=== PATIENT | male | born 1990 | race African-American/Black ===

== ENCOUNTER 2016-02-17 19:22 | Emergency (ER) | payer OTHER ==
[2016-02-17] MEDS ORDERED: AMOXicillin 250 MG CAP ONE (19:35)
[2016-02-17] MEDS ORDERED: Ketorolac Tromethamine 60 MG/2 ML VIAL ONE (19:35)
[2016-02-17] MEDS ORDERED: HYDROcodone/Acetaminophen 5/325 mg Tablet ONE (19:35)
--- NOTE | 2016-02-17 20:14 | ERRECORD ---
[facility] EMERGENCY RECORD HPI TOOTHACHE (19:38 ALIM) CHIEF COMPLAINT: Patient presents for evaluation of toothache. HISTORIAN: History provided by patient, 26 y/o male with no pmh presenting with right upper premolar pain worsening for one week. Tooth is fracture. No facial swelling. No fever. No other complaints. LOCATION: Symptoms are localized, most severe to Right upper premolar. QUALITY: Pain is dull in nature, described as aching. SEVERITY: Maximum severity of symptoms severe, Currently symptoms are severe. TIME COURSE: Gradual onset of symptoms, 1, weeks ago, Symptoms are worsening. ASSOCIATED WITH: No associated symptoms, No associated facial pain. EXACERBATED BY: Patient's condition exacerbated by chewing, Patient's condition exacerbated by cold fluids, Patient's condition exacerbated by hot fluids. RELIEVED BY: Patient's condition relieved by nothing. ROS (19:38 ALIM) CONSTITUTIONAL: Negative constitutional review of systems, Historian denies chills, denies fever. EYES: Negative eye review of systems, Historian denies eye pain, denies eye redness. ENT: Historian denies rhinorrhea, denies sore throat. Right upper premolar tooth pain. CARDIOVASCULAR: Negative cardiovascular review of systems, Historian denies chest pain, no radiation, Historian denies syncope. RESPIRATORY: Negative respiratory review of systems, Historian denies cough, denies shortness of breath. GI: Negative gastrointestinal review of systems, Historian denies abdominal pain, denies constipation, denies diarrhea, denies nausea, denies vomiting. MUSCULOSKELETAL: Negative musculoskeletal review of systems, Historian denies back pain, denies injury, denies neck pain. SKIN: Negative skin review of systems, Historian denies rash, denies skin changes. NEUROLOGIC: Negative neurologic review of systems, Historian denies dizziness, denies focal weakness, denies headache. PSYCHIATRIC: Negative psychiatric review of systems, Historian denies alcohol abuse, denies anxiety, denies depression. NOTES: All systems reviewed, negative except as described above. PAST MEDICAL HISTORY MEDICAL HISTORY: Notes: HOSPITALIZED FOR 1 WEEK IN DEC 2011. PT STATES HAD ENLARGED HEART VALVE. NO PROLEMS SINCE, Flu vaccine not up to date, Tetanus not up to date. (19:34 [facility]) MALE SURGICAL HISTORY: Patient has no surgical history. (19:34 [facility]) &a-1R&a+25V*p+0X*[id number]*c202B*c15G*c2P*p-0X&a-25V&a+1R Name: Richard Rivera : 1990 M26 MedRec: [id number] AcctNum: [id number] Prepared: WedFeb 17, 2016 20:25 by Interface Page 1 of 4 pMD [facility] EMERGENCY RECORD PSYCHIATRIC HISTORY: No previous psychiatric history. (19:34 [facility]) SOCIAL HISTORY: Patient drinks socially, every week, Patient denies drug use, Patient currently uses tobacco, smokes cigarettes, Occasional or some day smoker, Lives at home, with family. (19:34 [facility]) NOTES: Nursing records reviewed, Agree with nursing records, Medication list reviewed, I have reviewed and agree with nursing PMH, PSH, social history, and FH. (19:38 [facility]) KNOWN ALLERGIES No Known Drug Allergies CURRENT MEDICATIONS (19:32 [facility]K) None VITAL SIGNS VITAL SIGNS: BP: 157/93, Pulse: 89, Resp: 16, Temp: 98.4 (Oral), Pain: 10 (Intermittent), O2 sat: 96 on Room Air, Time: 02/17/2016 19:29. (19:29 [facility]) Pain: 4, Time: 02/17/2016 19:57. (19:57 [facility]) PHYSICAL EXAM (19:38 ALIM) CONSTITUTIONAL: Vital signs reviewed, Patient afebrile, Pulse normal, Blood pressure, hypertensive, Respiratory rate normal, Patient appears non toxic, Patient appears in pain, in moderate pain distress, Patient alert and oriented to person, place and time. HEAD: Head exam normal, Head exam included findings of head atraumatic, normocephalic. EYES: Eye exam normal, Eye exam included findings of eyelids normal to inspection, Pupils equally round and reactive to light, Extraocular muscles intact. ENT: Ear exam normal, Nose exam normal, Pharynx exam normal, Teeth with, dental caries, fractures, R upper premolar fractured. NECK: Neck exam normal, Neck exam included findings of normal range of motion, Trachea midline. RESPIRATORY CHEST: Respiratory and chest exam normal, Respiratory exam included findings of no respiratory distress, Breath sounds clear, No wheezing. CARDIOVASCULAR: Cardiovascular assessment normal, Cardiovascular exam included findings of heart rate regular rate and rhythm, Heart sounds normal. BACK: Back exam normal, Back exam included findings of normal inspection, range of motion normal. UPPER EXTREMITY: Upper extremity exam normal, Upper extremity exam included findings of inspection normal, Range of motion normal. LOWER EXTREMITY: Lower extremity exam normal, Lower extremity exam included findings of inspection normal, Range of motion normal. &a-1R&a+25V*p+0X*[id number]*c202B*c15G*c2P*p-0X&a-25V&a+1R Name: Richard Rivera : 1990 M26 MedRec: [id number] AcctNum: [id number] Prepared: WedFeb 17, 2016 20:25 by Interface Page 2 of 4 pMD [facility] EMERGENCY RECORD NEURO: Neuro exam normal, Norton coma scale 15, Neuro exam findings include patient oriented to person, place and time, Speech normal, Gait normal. SKIN: Skin exam normal, Skin exam included findings of skin warm, dry, and normal in color. PSYCHIATRIC: Psychiatric exam normal, Psychiatric exam included findings of patient oriented to person place and time, Normal affect, Judgment normal. MEDICATION ADMINISTRATION SUMMARY Drug Name: Toradol intramuscular, Dose Ordered: 60 mg, Route: Intramuscular, Status: Given, Time: 19:40 02/17/2016, Drug Name: amoxicillin, Dose Ordered: 500 mg, Route: Oral, Status: Given, Time: 19:39 02/17/2016, Drug Name: [place], Dose Ordered: 1 tab(s), Route: Oral, Status: Given, Time: 19:39 02/17/2016, Detailed record available in Medication Service section. PROBLEM LIST No recorded problems DIAGNOSIS (19:34 ALIM) FINAL: PRIMARY: Toothache, ADDITIONAL: Dental infection, Right upper premolar cracked tooth. PRESCRIPTION acetaminophen-codeine: TABLET : 300 mg-30 mg : ORAL : Quantity: 1 Unit: tab(s) Route: ORAL Schedule: every 8 hours PRN Dispense: 10 Unit: tab(s) May substitute. Refills: No Refills . (19:35 [facility]) NOTES: No Refills. (19:35 ALIM) amoxicillin: CAPSULE : 500 mg : ORAL : Quantity: 1 Unit: tab(s) Route: ORAL Schedule: 2 times a day Dispense: 20 Unit: tab(s) May substitute. Refills: No Refills . (19:35 ALIM) NOTES: ^s=No Refills No Refills. (19:35 ALIM) Naprosyn: TABLET : 250 mg : ORAL : Quantity: 500 Unit: mg Route: ORAL Schedule: every 12 hours Dispense: 20 May substitute. Refills: No Refills POTENTIAL CONTRAINDICATED INTERACTION: Toradol intramuscular (ketorolac tromethamine) Override Rationale: Patient no longer on medication. (19:35 [facility]) NOTES: As needed for pain No Refills. (19:35 ALIM) Peridex: MOUTHWASH : 0.12 % : MUCOUS MEMBRANE : Quantity: 10 Unit: mL Route: MUCOUS MEMBRANE Schedule: 2 times a day Dispense: 120 Unit: mL May substitute. Refills: No Refills . (19:37 [facility]) &a-1R&a+25V*p+0X*o2412S*c202B*c15G*c2P*p-0X&a-25V&a+1R Name: Richard Rivera : 1990 [facility] [place] MedRec: [id number] AcctNum: [id number] Prepared: WedFeb 17, 2016 20:25 by Interface Page 3 of 4 pMD [facility] EMERGENCY RECORD NOTES: swish and spit. do not swallow No Refills. (19:37 ALIM) DISPOSITION PATIENT: Disposition Type: Discharge, Disposition: *Discharge Home. (19:34 [facility]I) Patient left the department. (19:58 [facility]) Diana: MERCEDES=MD Neal, Ramy [facility]=DANNY Tesfaye, Mary Anne &a-1R&a+25V*p+0X*[id number]*c202B*c15G*c2P*p-0X&a-25V&a+1R Name: Richard Rivera : 1990 [facility] [place] MedRec: [id number] AcctNum: [id number] Prepared: Caroline Feb 17, 2016 20:25 by Interface Page 4 of 4 pMD MTDD
--- NOTE | 2016-02-17 20:17 | PICIS ---
[facility] EMERGENCY RECORD TRIAGE (19:32 [facility]) TRIAGE NOTES: RIGHT UPPER PREMOLAR CRACKED/PAIN X1 WEEK. NO OTHER COMPLAINTS. (19:32 [facility]) PATIENT: NAME: Richard Rivera, AGE: 26, GENDER: male, : Wed1990, TIME OF GREET: WedFeb 17, 2016 19:23, PREFERRED LANGUAGE: Bruneian, ETHNICITY: Not or , ECODE BILLING MAP: [facility], Zip Code: [address], KG WEIGHT: 113.4 (est.), PHONE: , , , PERSON ID: [id number], PCP: NONE. (19:32 [facility]) COMPLAINT: TOOTH ACHE,1 WEEK. (19:32 [facility]) ADMISSION: URGENCY: 5 Fast Track, ADMISSION SOURCE: Home, TRANSPORT: CAR, BED: ER -02. (19:32 [facility]) ASSESSMENT: Symptoms began 1 WEEK. (19:34 [facility]) PAIN: Patient complains of pain described as, throbbing, on a scale 0-10 patient rates pain as 10, Location RIGHT UPPER PREMOLAR, Pain is intermittent. (19:34 [facility]) IMMUNIZATIONS: Flu vaccine not up to date, Tetanus not up to date. (19:34 [facility]) SIRS SCORING: Heart Rate 55-109 (0), Temp range 96.8-101.1 (0), respiratory rate 12-24 (0), Latest WBC 3-14.9 (0), Mental Status altered: no (0). (19:34 [facility]) TRIAGE SCREENING: Patient denies suicidal ideation, Patient denies presence of domestic violence. (19:34 [facility]) TREATMENTS IN PROGRESS: Treatments given Prehospital: ORAJEL. (19:34 [facility]) PROVIDERS: TRIAGE NURSE: Mary Anne Tesfaye RN. (19:32 [facility]) VITAL SIGNS: BP 157/93, Pulse 89, Resp 16, Temp 98.4, (Oral), Pain 10, (Intermittent), O2 Sat 96, on Room Air, Time 02/17/2016 19:29. (19:29 [facility]) KNOWN ALLERGIES No Known Drug Allergies CURRENT MEDICATIONS (19:32 [facility]) None VITAL SIGNS VITAL SIGNS: BP: 157/93, Pulse: 89, Resp: 16, Temp: 98.4 (Oral), Pain: 10 (Intermittent), O2 sat: 96 on Room Air, Time: 02/17/2016 19:29. (19:29 [facility]) Pain: 4, Time: 02/17/2016 19:57. (19:57 [facility]) NURSING ASSESSMENT: DENTAL (19:35 [facility]) CONSTITUTIONAL: Complex assessment performed, Patient arrives ambulatory, Gait steady, History obtained from patient, Patient appears, in distress due to pain, Patient cooperative, Patient alert, Oriented to person, place and time, Skin warm, Skin dry, Skin normal in color, Mucous membranes pink, Mucous membranes &a-1R&a+25V*p+0X*a0766W*c202B*c15G*c2P*p-0X&a-25V&a+1R Name: Richard Rivera : 1990 M26 MedRec: [id number] AcctNum: [id number] Prepared: WedFeb 17, 2016 20:32 by Interface Page 1 of 7 pMD [facility] EMERGENCY RECORD moist, Patient complains of TOOTHACHE. PAIN: throbbing pain, RIGHT UPPER PREMOLAR, Onset of pain 1 WEEK, intermittent, on a scale 0-10 patient rates pain as 10. DENTAL: Dental assessment findings include mouth normal, Teeth abnormal:, gums swollen, gums tender, gums red, BROKEN RIGHT PREMOLAR. SAFETY: Cart/Stretcher in lowest position, Family at bedside, Call light within reach, Hospital ID band on. NURSING PROCEDURE: DISCHARGE NOTE (19:58 [facility]) DISCHARGE: Patient discharged to home, ambulating without assistance, family driving, accompanied by //partner, Summary of Care printed/ provided, Discharge instructions given to patient, Simple or moderate discharge teaching performed, by DANNY [place], discharge instructions and prescriptions reviewed with patient using teachback method. instructed pt not to stop taking antibiotic until prescriptionis complete, even if symptoms have resolved. take tylenol or motrin or naproxen for pain. take tylenol #3 for severe pain. avoid hot and cold liquids to help with pain. apply ice packs to the painful area to help decrease pain and swelling. follow up with dentist this week., Prescriptions given and instructions on side effects given, Name of prescription(s) given: TYLENOL #3, AMOXICILLIN, NAPROSYN, PERIDEX, Above person(s) verbalized understanding of discharge instructions and follow-up care, Patient instructed not to drive home. BELONGINGS: Belongings and valuables with patient upon arrival to the Emergency Department include:, Belongings and valuables with patient at time of discharge include:, Belongings remain with patient, Valuables remain with patient. MEDICATION ADMINISTRATION SUMMARY Drug Name: Toradol intramuscular, Dose Ordered: 60 mg, Route: Intramuscular, Status: Given, Time: 19:40 02/17/2016, Drug Name: amoxicillin, Dose Ordered: 500 mg, Route: Oral, Status: Given, Time: 19:39 02/17/2016, Drug Name: [place], Dose Ordered: 1 tab(s), Route: Oral, Status: Given, Time: 19:39 02/17/2016, Detailed record available in Medication Service section. MEDICATION SERVICE amoxicillin: Order: amoxicillin (amoxicillin trihydrate) - Dose: 500 mg : Oral Schedule: Now Ordered by: Ramy De Jesus MD Entered by: Ramy De Jesus MD WedFeb 17, 2016 19:33 , Acknowledged by: Mary Anne Tesfaye RN WedFeb 17, 2016 19:34 Documented as given by: Ela Delarosa RN WedFeb 17, 2016 19:39 Patient, Medication, Dose, Route and Time verified prior to &a-1R&a+25V*p+0X*z3620M*c202B*c15G*c2P*p-0X&a-25V&a+1R Name: Richard Rivera : 1990 M26 MedRec: [id number] AcctNum: [id number] Prepared: WedFeb 17, 2016 20:32 by Interface Page 2 of 7 pMD [facility] EMERGENCY RECORD administration. Amount given: 500 mg, Site: Medication administered P.O., Correct patient, time, route, dose and medication confirmed prior to administration, Patient advised of actions and side-effects prior to administration, Allergies confirmed and medications reviewed prior to administration, Patient in position of comfort, Side rails up, Cart in lowest position, Family at bedside. [place]: Order: [place] (hydrocodone bitartrate/acetaminophen) - Dose: 1 tab(s) : Oral Schedule: Now Ordered by: Ramy De Jesus MD Entered by: Ramy De Jesus MD WedFeb 17, 2016 19:34 , Acknowledged by: Mary Anne Tesfaye RN WedFeb 17, 2016 19:34 Documented as given by: Ela Delarosa RN WedFeb 17, 2016 19:39 Patient, Medication, Dose, Route and Time verified prior to administration. Amount given: 1 tab, Site: Medication administered P.O., Correct patient, time, route, dose and medication confirmed prior to administration, Patient advised of actions and side-effects prior to administration, Allergies confirmed and medications reviewed prior to administration, Patient in position of comfort, Side rails up, Cart in lowest position, Family at bedside, (1)5-325 mg tab. Toradol intramuscular: Order: Toradol intramuscular (ketorolac tromethamine) - Dose: 60 mg : Intramuscular Schedule: Now Ordered by: Ramy De Jesus MD Entered by: Ramy De eJsus MD WedFeb 17, 2016 19:33 , Acknowledged by: Mary Anne Tesfaye RN WedFeb 17, 2016 19:34 Documented as given by: Mary Anne Tesfaye RN WedFeb 17, 2016 19:40 Patient, Medication, Dose, Route and Time verified prior to administration. IM medication, Amount given: 60mg, Medication administered to right buttock, Patient appears Awake and alert- acceptable, Correct patient, time, route, dose and medication confirmed prior to administration, Patient advised of actions and side-effects prior to administration, Allergies confirmed and medications reviewed prior to administration. : Follow Up : No signs or symptoms of allergic reaction noted, Decreased pain, Site inspection shows, No swelling at administration site, No drainage at administration site, No bleeding at site, No bruising noted at site, Dressing applied. (19:55 [facility]) HPI TOOTHACHE (19:38 [facility]) CHIEF COMPLAINT: Patient presents for evaluation of toothache. HISTORIAN: History provided by patient, 26 y/o male with no pmh presenting with right upper premolar pain worsening for one week. Tooth is fracture. No facial swelling. No fever. No other complaints. LOCATION: Symptoms are localized, most severe to Right upper premolar. QUALITY: Pain is dull in nature, described &a-1R&a+25V*p+0X*v1410N*c202B*c15G*c2P*p-0X&a-25V&a+1R Name: Richard Rivera : 1990 M26 MedRec: [id number] AcctNum: [id number] Prepared: WedFeb 17, 2016 20:32 by Interface Page 3 of 7 pMD [facility] EMERGENCY RECORD as aching. SEVERITY: Maximum severity of symptoms severe, Currently symptoms are severe. TIME COURSE: Gradual onset of symptoms, 1, weeks ago, Symptoms are worsening. ASSOCIATED WITH: No associated symptoms, No associated facial pain. EXACERBATED BY: Patient's condition exacerbated by chewing, Patient's condition exacerbated by cold fluids, Patient's condition exacerbated by hot fluids. RELIEVED BY: Patient's condition relieved by nothing. ROS (19:38 [facility]) CONSTITUTIONAL: Negative constitutional review of systems, Historian denies chills, denies fever. EYES: Negative eye review of systems, Historian denies eye pain, denies eye redness. ENT: Historian denies rhinorrhea, denies sore throat. Right upper premolar tooth pain. CARDIOVASCULAR: Negative cardiovascular review of systems, Historian denies chest pain, no radiation, Historian denies syncope. RESPIRATORY: Negative respiratory review of systems, Historian denies cough, denies shortness of breath. GI: Negative gastrointestinal review of systems, Historian denies abdominal pain, denies constipation, denies diarrhea, denies nausea, denies vomiting. MUSCULOSKELETAL: Negative musculoskeletal review of systems, Historian denies back pain, denies injury, denies neck pain. SKIN: Negative skin review of systems, Historian denies rash, denies skin changes. NEUROLOGIC: Negative neurologic review of systems, Historian denies dizziness, denies focal weakness, denies headache. PSYCHIATRIC: Negative psychiatric review of systems, Historian denies alcohol abuse, denies anxiety, denies depression. NOTES: All systems reviewed, negative except as described above. PAST MEDICAL HISTORY MEDICAL HISTORY: Notes: HOSPITALIZED FOR 1 WEEK IN DEC 2011. PT STATES HAD ENLARGED HEART VALVE. NO PROLEMS SINCE, Flu vaccine not up to date, Tetanus not up to date. (19:34 [facility]) MALE SURGICAL HISTORY: Patient has no surgical history. (19:34 [facility]) PSYCHIATRIC HISTORY: No previous psychiatric history. (19:34 [facility]) SOCIAL HISTORY: Patient drinks socially, every week, Patient denies drug use, Patient currently uses tobacco, smokes cigarettes, Occasional or some day smoker, Lives at home, with family. (19:34 [facility]) NOTES: Nursing records reviewed, Agree with nursing records, Medication list reviewed, I have reviewed and agree with nursing PMH, &a-1R&a+25V*p+0X*j9376N*c202B*c15G*c2P*p-0X&a-25V&a+1R Name: Richard Rivera : 1990 M26 MedRec: [id number] AcctNum: [id number] Prepared: WedFeb 17, 2016 20:32 by Interface Page 4 of 7 pMD [facility] EMERGENCY RECORD PSH, social history, and FH. (19:38 [facility]) PHYSICAL EXAM (19:38 [facility]) CONSTITUTIONAL: Vital signs reviewed, Patient afebrile, Pulse normal, Blood pressure, hypertensive, Respiratory rate normal, Patient appears non toxic, Patient appears in pain, in moderate pain distress, Patient alert and oriented to person, place and time. HEAD: Head exam normal, Head exam included findings of head atraumatic, normocephalic. EYES: Eye exam normal, Eye exam included findings of eyelids normal to inspection, Pupils equally round and reactive to light, Extraocular muscles intact. ENT: Ear exam normal, Nose exam normal, Pharynx exam normal, Teeth with, dental caries, fractures, R upper premolar fractured. NECK: Neck exam normal, Neck exam included findings of normal range of motion, Trachea midline. RESPIRATORY CHEST: Respiratory and chest exam normal, Respiratory exam included findings of no respiratory distress, Breath sounds clear, No wheezing. CARDIOVASCULAR: Cardiovascular assessment normal, Cardiovascular exam included findings of heart rate regular rate and rhythm, Heart sounds normal. BACK: Back exam normal, Back exam included findings of normal inspection, range of motion normal. UPPER EXTREMITY: Upper extremity exam normal, Upper extremity exam included findings of inspection normal, Range of motion normal. LOWER EXTREMITY: Lower extremity exam normal, Lower extremity exam included findings of inspection normal, Range of motion normal. NEURO: Neuro exam normal, [place] coma scale 15, Neuro exam findings include patient oriented to person, place and time, Speech normal, Gait normal. SKIN: Skin exam normal, Skin exam included findings of skin warm, dry, and normal in color. PSYCHIATRIC: Psychiatric exam normal, Psychiatric exam included findings of patient oriented to person place and time, Normal affect, Judgment normal. EVENTS TRANSFER: Triage to Emergency Emergency Room -02. (WedFeb 17, 2016 19:32 [facility]) Removed from Emergency Emergency Room -02. (19:58 [facility]) ATTENDING (19:38 [facility]) ATTENDING: The documented history was done by me personally, The documented physical exam was done by me personally, The documented procedures were done by me personally, I have personally seen and examined this patient. I have fully participated in the care of this patient. I have reviewed all pertinent clinical information, &a-1R&a+25V*p+0X*o4938H*c202B*c15G*c2P*p-0X&a-25V&a+1R Name: Richard Rivera : 1990 M26 MedRec: [id number] AcctNum: [id number] Prepared: WedFeb 17, 2016 20:32 by Interface Page 5 of 7 pMD [facility] EMERGENCY RECORD including history, physical exam and plan. PROBLEM LIST No recorded problems DIAGNOSIS (19:34 [facility]) FINAL: PRIMARY: Toothache, ADDITIONAL: Dental infection, Right upper premolar cracked tooth. DISPOSITION PATIENT: Disposition Type: Discharge, Disposition: *Discharge Home. (19:34 [facility]) Patient left the department. (19:58 [facility]) INSTRUCTION (19:37 [facility]) DISCHARGE: TOOTH FRACTURED, TOOTH PAIN. FOLLOWUP: Anderson EDWARDS D.D.S, KENNEDI, Dentistry, [address] [facility] [address], [facility] [address], [id number], [facility], [facility], [address] [facility], [facility] [address], , Zari COLLADOS., SUJATHA, Dentistry, [address] [facility] [address], [phone], Melisa Morales, Dentistry, [address] [facility] [address] [facility] [address], [place] [address], [facility], , Zari THAKURS., JENNIFFER COTTRELL, Dentistry, [address], [place] [address], [id number], XENIA REEVESNA, Dentistry, [address] [facility] [place] [address], [id number], KEESHA SanchezS, Nieku, Dentistry, [address] [facility], [place] [id number], [facility], , ELIZABETH DDS, CHARITY, Dentistry, [address] [facility], [place] [address], [id number], Nicolas FLOWERS.S., LUIS EDUARDO, Dentistry, [address], [place] [address], [id number], [facility], Dental, Dentistry, [address] [facility], [place] [address], , Nicolas JONES.S., NIKKI, Dentistry, [address] [facility], [place] [address], [phone], KEESHA PeraltaS, Acosta, Dentistry, [address] [facility]. [address], [place] [address], , Akhil ATWOODD.S., LICO, Dentistry, [address], [place] [address], [phone], Light, DDS, Kerry, Dentistry, [address] [place] [address], [facility], , Follow up with Primary Care Physician in 1-2 days. SPECIAL: Follow-up with your primary care physician in 2-3 days for reevaluation. Please review the instructions and educational material provided for you. Return to the Emergency Center if you have worsening symptoms not controlled by medication, or if you have chest pain, shortness of breath, nausea and vomiting that cannot be controlled, or any other medical concerns. PRESCRIPTION acetaminophen-codeine: TABLET : 300 mg-30 mg : ORAL : Quantity: 1 Unit: tab(s) Route: ORAL Schedule: every 8 hours PRN Dispense: 10 Unit: tab(s) May substitute. Refills: No Refills . (19:35 [facility]) NOTES: No Refills. (19:35 [facility]) amoxicillin: CAPSULE : 500 mg : ORAL : Quantity: 1 Unit: &a-1R&a+25V*p+0X*l5074Y*c202B*c15G*c2P*p-0X&a-25V&a+1R Name: Richard Rivera : 1990 M26 MedRec: [id number] AcctNum: [id number] Prepared: WedFeb 17, 2016 20:32 by Interface Page 6 of 7 pMD [facility] EMERGENCY RECORD tab(s) Route: ORAL Schedule: 2 times a day Dispense: 20 Unit: tab(s) May substitute. Refills: No Refills . (19:35 [facility]) NOTES: ^s=No Refills No Refills. (19:35 [facility]) Naprosyn: TABLET : 250 mg : ORAL : Quantity: 500 Unit: mg Route: ORAL Schedule: every 12 hours Dispense: 20 May substitute. Refills: No Refills POTENTIAL CONTRAINDICATED INTERACTION: Toradol intramuscular (ketorolac tromethamine) Override Rationale: Patient no longer on medication. (19:35 [facility]) NOTES: As needed for pain No Refills. (19:35 [facility]) Peridex: MOUTHWASH : 0.12 % : MUCOUS MEMBRANE : Quantity: 10 Unit: mL Route: MUCOUS MEMBRANE Schedule: 2 times a day Dispense: 120 Unit: mL May substitute. Refills: No Refills . (19:37 [facility]) NOTES: swish and spit. do not swallow No Refills. (19:37 [facility]) IMAGING *DISCHARGE INSTRUCTIONS RECEIPT: Image captured from scanner. (20:10 [facility]) Page 2 added. Image captured from scanner. (20:11 [facility]) Page 3 added. Image captured from scanner. (20:11 [facility]) *SUPPLY CHARGE SHEET: Image captured from scanner. (20:11 [facility]) ADMIN (20:21 [facility]) DIGITAL SIGNATURE: MD De Jesus Arthur. Diana: MERCEDES=MD De Jesus Arthur [facility]=DANNY Tesfaye, Mary Anne &a-1R&a+25V*p+0X*n5071E*c202B*c15G*c2P*p-0X&a-25V&a+1R Name: Richard Rivera : 1990 M26 MedRec: [id number] AcctNum: [id number] Prepared: WedFeb 17, 2016 20:32 by Interface Page 7 of 7 pMD MTDD
== END 2016-02-17 19:58 | disposition home or self-care (01) ==
LOC: NAV ERS 19:22
DX: K04.7 Periapical abscess without sinus (principal); K03.81 Cracked tooth
CPT/HCPCS: 96372; J1885

== ENCOUNTER 2017-01-11 11:38 | Emergency (ER) | payer OTHER, SELFPAY ==
[2017-01-11] MEDS ORDERED: Ibuprofen 800 MG TAB ONE (12:07)
--- NOTE | 2017-01-11 12:23 | RAD ---
THREE VIEWS OF THE RIGHT HAND: INDICATIONS: Right hand pain. Punched TV. FINDINGS: No acute fracture or subluxation is evident. There is soft tissue swelling overlying the dorsal aspe ct of the right hand. IMPRESSION: No acute osseous abnormality. POS: JUVENAL
--- NOTE | 2017-01-11 12:24 | RAD ---
THREE VIEWS OF THE RIGHT HAND: INDICATIONS: Punched TV with wrist pain. FINDINGS: No definite acute fracture or subluxation is evident. Carpal alignment is preserved. IMPRESSION: No acute osseous abnormality. POS: JUVENAL
[2017-01-11] MEDS ORDERED: Triple Antibiotic Oint 1 GM Packet ONE (12:43)
== END 2017-01-11 12:45 | disposition home or self-care (01) ==
LOC: NAV ERS 11:38
DX: S60.221A Contusion of right hand, initial encounter (principal); F17.210 Nicotine dependence, cigarettes, uncomplicated; W22.8XXA Striking against or struck by other objects, initial encounter

== ENCOUNTER 2017-03-06 19:22 | Emergency (ER) | payer SELFPAY ==
[2017-03-06] MEDS ORDERED: Cephalexin 250 MG CAP ONE (19:58)
[2017-03-06] MEDS ORDERED: Acetaminophen/Codeine 30-300mg Tablet ONE ×2 (19:58→20:23)
[2017-03-06] MEDS ORDERED: Adacel (T-DAP) 0.5 ML VIAL ONE (20:03)
== END 2017-03-06 20:31 | disposition home or self-care (01) ==
LOC: NAV ERS 19:22
DX: L03.011 Cellulitis of right finger (principal); Z87.891 Personal history of nicotine dependence
CPT/HCPCS: 10060; 87070; 87077; 87186; 87205; 90471; 90715